=== PATIENT | male | born 1975 | race African-American/Black ===

== ENCOUNTER 2023-05-09 07:28 | Emergency (ER) | payer BC, SELFPAY ==
[2023-05-09 08:25] LABS: SARS-CoV-2 NAA Rapid Test DETECTED (NotDetected)
== END 2023-05-09 08:45 | disposition home or self-care (01) ==
LOC: ERS 07:28
DX: U07.1 COVID-19 (principal); F17.210 Nicotine dependence, cigarettes, uncomplicated
CPT/HCPCS: 99283